=== PATIENT | male | born 1935 | race Caucasian/White ===

== ENCOUNTER 2017-08-19 10:24 | Inpatient (IN) ==
[2017-08-19] MEDS ORDERED: ASPIRIN PO STA (11:27)
[2017-08-19] MEDS ORDERED: MORPHINE IV ONE ×2 (11:32→14:48)
[2017-08-19] MEDS ORDERED: CATAPRES PO ONE (11:32)
[2017-08-19 12:08] LABS: MANUAL DIFF NEEDED? NO
[2017-08-19 12:21] LABS: BASO% 0.2 % (0.0-0.8); EOS# 0.04 X1000 (0.0-0.7); EOS% 0.3 % (0.0-10.0); HEMATOCRIT 39.9 % (42.0-52.0); HEMOGLOBIN 13.3 g/dL (14.0-18.0); LYMPH# 1.47 X1000 (1.2-3.4); LYMPH% 10.3 % (20.5-51.1); MCH 32.8 PG (27-31); MCHC 33.3 g/dL (33-37); MCV 98.3 FL (81-99); MONO# 0.73 X1000 (0.11-0.59); MONO% 5.1 % (1.7-9.3); MPV 10.7 FL (7.4-10.4); NEUT% 84.1 % (42.2-75.2); PLT 259 X1000 (130-400); RBC 4.06 XMIL (4.7-6.1)
[2017-08-19 12:27] LABS: INR 1.02; PROTIME 10.7 Seconds (9.2-11.7); PTT 25.9 Seconds (22.0-36.0)
[2017-08-19 12:35] LABS: CALCIUM 9.8 mg/dL (8.8-10.2); POTASSIUM 5.1 mmol/L (3.5-5.1); TOTAL BILIRUBIN 0.33 mg/dL (0.20-1.00); TOTAL PROTEIN 7.8 g/dL (6.3-8.3)
[2017-08-19 12:43] LABS: URINE SOURCE CATH
[2017-08-19 12:47] LABS: BILIRUBIN URINE NEGATIVE (NEGATIVE); BLOOD URINE NEGATIVE (NEGATIVE); COLOR ORANGE; GLUCOSE URINE NEGATIVE (NEGATIVE); LEUKOCYTES URINE LARGE (NEGATIVE); NITRITE URINE NEGATIVE (NEGATIVE); PH URINE 8.5; PROTEIN URINE 600 mg/dL (NEGATIVE); SP GRAVITY URINE 1.014; TURBIDITY URINE TURBID (CLEAR); UROBILINOGEN URINE NORMAL (NORMAL)
[2017-08-19 13:17] LABS: UR EPITHELIAL CELLS >10 /HPF (<10); URINE BACTERIA 4+ /HPF; URINE CULTURE NEEDED? YES; URINE MICRO REVIEW NEEDED? YES; URINE WBC TNTC /HPF (<10)
[2017-08-19 13:18] LABS: URINE CRYSTALS TRIPLE PHOS PRESENT
[2017-08-19] MEDS ORDERED: APRESOLINE IV ONE (13:46)
--- NOTE | 2017-08-19 13:47 | Diag Imaging Result Doc PS360 ---
EXAM: CHEST-PORTABLE INDICATION: SOB TECHNIQUE: One view COMPARISON: 10/07/2016 FINDINGS: There is mild linear scarring at the right lung base, stable. The lungs are grossly clear, otherwise. There is no discrete pleural fluid collection or pneumothorax. There are stable median sternotomy wires. Cardiac silhouette and central vasculature are grossly unremarkable, otherwise. IMPRESSION: Stable mild right basilar scarring. No definite acute chest pathology. Electronically signed by Tony Perez 08/19/2017 1:45 PM
--- NOTE | 2017-08-19 14:07 | PROVIDER DOCUMENTATION ---
HPI-Rash/Wound/ReCheck - General Chief Complaint: Return/Recheck Stated Complaint: MALE Time Seen by Provider: 08/19/17 11:05 Source: patient Allergies/Adverse Reactions: Allergies Allergy/AdvReac Type Severity Reaction Status Date / Time nitroglycerin Allergy Intermediate Unknown Verified 08/01/17 22:40 Home Medications: Home Medication List Medication Instructions Recorded Confirmed Last Taken Type Atenolol 50 mg PO DAILY 10/26/14 11/09/16 11/08/16 09:00 History Finasteride 5 mg PO DAILY 10/26/14 11/09/16 11/08/16 09:00 History Lisinopril 20 mg PO DAILY 10/26/14 11/09/16 11/08/16 08:00 History Metformin [Glucophage] 500 mg PO BID 10/26/14 11/09/16 11/08/16 21:00 History Glipizide 5 mg PO DAILY 11/24/14 11/09/16 11/08/16 21:00 History Aspirin 81 mg PO DAILY 11/12/15 11/09/16 11/02/16 09:00 History Tamsulosin [Flomax] 0.4 mg PO BID 04/30/16 11/09/16 11/09/16 04:30 History Furosemide [Lasix] 20 mg PO DAILY 08/16/16 11/09/16 11/09/16 04:40 History Donepezil [Aricept] 10 mg PO DAILY 10/07/16 11/09/16 11/08/16 09:00 History Acetaminophen [Tylenol] 500 mg PO PRN PRN 11/01/16 11/09/16 11/08/16 09:00 History Cetirizine [Zyrtec] 10 mg PO DAILY 11/01/16 11/09/16 11/08/16 09:00 History Mv,Ca,Min/Iron Fum/FA/Lyco/Lut 1 each PO DAILY 11/01/16 11/09/16 11/08/16 09:00 History [Complete Multi Tablet] Nitrofurantoin [place]/Macrocryst 100 mg PO BID #14 capsule 11/10/16 Unknown Rx [Macrobid] Tramadol HCl [Ultram] 50 mg PO Q4H PRN #15 tablet 11/10/16 Unknown Rx Fluconazole [Diflucan] 100 mg PO DAILY #10 tablet 08/19/17 Unknown Rx - History of Present Illness-Dermatology Nature of Presenting Problem: PT TO ER TODAY WITH C/O PAIN AND DISCHARGE FROM [facility]. HAS BEEN SEEN HERE SEVERAL TIMES INCLUDING LAST NIGHT FOR SAME COMPLAINT. STS THAT PAIN AND DISCHARGE GETS BETTER AFTER MEDICATION BUT THEN IT COMES RIGHT BACK. PT WITH HX OF DEMENTIA, NO FAMILY AT BEDSIDE TO ASSIST. Similar Symptoms Previously?: Yes Recently seen or treated by another doctor?: Yes Review of Systems - Adult - REVIEW OF SYSTEMS - ADULT ROS:: limited per condition (DEMENTIA) Constitutional: reports: no symptoms reported. denies: chills, fever Eyes: reports: no symptoms reported Ears, Nose, Mouth & Throat: reports: no symptoms reported Cardiovascular: reports: no symptoms reported. denies: chest pain, palpitations , syncope Respiratory: reports: dyspnea on exertion, shortness of breath Gastrointestinal: reports: see HPI, abdominal pain Genitourinary: reports: see HPI, discharge Musculoskeletal: reports: no symptoms reported Integumentary: reports: no symptoms reported Neurological: reports: no symptoms reported Psychiatric: reports: no symptoms reported Endocrine: reports: no symptoms reported Hematologic/Lymphatic: reports: no symptoms reported Allergic/Immunologic: reports: no symptoms reported All Other Systems: Reviewed and Negative Past History - Adult - PAST MEDICAL HISTORY-ADULT Review of Records: reports: Old Records Reviewed, Nursing Assessment Review, Medications Reviewed, Social history reviewed & non-contributory. Major Childhood Illnesses: reports: denies history Cardiovascular: reports: CAD, HTN, hyperlipidemia Respiratory: reports: denies history Gastrointestinal: reports: diverticulosis Genitourinary: reports: prostate cancer Musculoskeletal: reports: denies history Neurological: reports: CVA, dementia Endocrine/Immune: reports: Diabetes Diabetes Type: Type 2 Diabetes controlled by:: PO Meds Other Conditions: reports: denies history Additional History: Legally blind - PRIOR SURGERIES/PROCEDURES Surgical/Procedure History: reports: CABG, cardiac stent, other (Catarax ) - PRIOR HOSPITALIZATIONS Prior Hospitalizations: reports: none - IMMUNIZATION STATUS Childhood Immunizations: See Nurse Assessment Flu Vaccine: See Nurse Assessment - FAMILY HISTORY Family History: reviewed, not pertinent Physical Exam-General - PHYSICAL EXAM-ADULT Initial Vital Signs Reviewed: Yes - CONSTITUTIONAL General Appearance: alert, mild distress - EYES Eyes: PERRL/EOMI, pink conjunctivae - HEAD, EARS, NOSE, MOUTH & THROAT HENMT: moist mucous membranes - RESPIRATORY Respiratory: chest non-tender, no pleuratic chest pain, no accessory muscle use , crackles, rales, increased rate - CARDIOVASCULAR Cardiovascular: regular rate, rhythm - GASTROINTESTINAL (ABDOMEN) Abdominal Exam: normal bowel sounds, soft, no organomegaly, no pulsatile mass, tenderness (SUPRAPUBIC). negative: distended - GENITOURINARY Male Genitalia: uncircumcised, other (YEAST TO [place] AREA AND SCROTUM) - MUSCULOSKELETAL Back Exam: normal inspection, no CVA tenderness, no vertebral tenderness Extremity: normal range of motion, normal gait, normal inspection, normal capillary refill - SKIN Integumentary: normal turgor, diaphoresis, pallor - NEUROLOGIC Neurologic: grossly normal, no motor/sensory deficits - PSYCHIATRIC Psych/Mental Status: normal mood/affect, disheveled Progress - PLAN OF CARE/RESULTS Progress/Plan/Lab Results: Vital Signs - 8 hr 08/19/17 10:28 08/19/17 12:04 08/19/17 12:05 Temperature 97.7 F Pulse Rate 80 74 73 Respiratory Rate 20 26 H 25 H Blood Pressure 204/97 210/95 210/95 O2 Sat by Pulse Oximetry 100 97 97 08/19/17 12:31 08/19/17 14:22 Temperature Pulse Rate 65 65 Respiratory Rate 22 22 Blood Pressure 194/99 196/95 O2 Sat by Pulse Oximetry 95 Laboratory Results - last 24 hr 08/19/17 08/19/17 08/19/17 11:43 11:53 11:53 WBC 14.22 H RBC 4.06 L Hgb 13.3 L Hct 39.9 L MCV 98.3 MCH 32.8 H MCHC 33.3 RDW Std Deviation 13.0 Plt Count 259 MPV 10.7 H Neut % (Auto) 84.1 H Lymph % (Auto) 10.3 L [place] % (Auto) 5.1 Eos % (Auto) 0.3 Baso % (Auto) 0.2 Neut # (Auto) 11.95 H Lymph # (Auto) 1.47 [place]asta # (Auto) 0.73 H Eos # (Auto) 0.04 Baso # (Auto) 0.03 PT INR PTT (Actin FS) Sodium 138 Potassium 5.1 Chloride 98 Carbon Dioxide 18 L Anion Gap 22 BUN 27 H Creatinine 2.2 H Estimated GFR/1.73 m2 29 BUN/Creatinine Ratio 12 Glucose 231 H POC Glucose 249 H Calculated Osmolality 288 Calcium 9.8 Magnesium 2.0 Total Bilirubin 0.33 AST 22 ALT 14 Alkaline Phosphatase 82 Creatine Kinase 84 Troponin T Uhj-R-Aibovwywbrb Pept Total Protein 7.8 Albumin 4.0 Globulin 3.8 Albumin/Globulin Ratio 1.1 Plasma Lactate Urine Source Urine Color Urine Turbidity Urine pH Ur Specific [place] Urine Protein Ur Glucose (Stick) Ur Ketones (Stick) Urine Blood Urine Nitrite Urine Bilirubin Urobilinogen Dipstick Urine Leukocytes Urine WBC (Auto) Urine RBC (Auto) U Epithel Cells (Auto) Urine Bacteria (Auto) Urine Crystals Small Round Cells Urine Casts Urine Yeast-like Cells 08/19/17 08/19/17 08/19/17 11:53 11:53 11:53 WBC RBC Hgb Hct MCV MCH MCHC RDW Std Deviation Plt Count MPV Neut % (Auto) Lymph % (Auto) [place] % (Auto) Eos % (Auto) Baso % (Auto) Neut # (Auto) Lymph # (Auto) [place] # (Auto) Eos # (Auto) Baso # (Auto) PT 10.7 INR 1.02 PTT (Actin FS) 25.9 Sodium Potassium Chloride Carbon Dioxide Anion Gap BUN Creatinine Estimated GFR/1.73 m2 BUN/Creatinine Ratio Glucose POC Glucose Calculated Osmolality Calcium Magnesium Total Bilirubin AST ALT Alkaline Phosphatase Creatine Kinase Troponin T < 0.010 Pwr-G-Hbsydtaawra Pept 5102 H Total Protein Albumin Globulin Albumin/Globulin Ratio Plasma Lactate Urine Source Urine Color Urine Turbidity Urine pH Ur Specific [place] Urine Protein Ur Glucose (Stick) Ur Ketones (Stick) Urine Blood Urine Nitrite Urine Bilirubin Urobilinogen Dipstick Urine Leukocytes Urine WBC (Auto) Urine RBC (Auto) U Epithel Cells (Auto) Urine Bacteria (Auto) Urine Crystals Small Round Cells Urine Casts Urine Yeast-like Cells 08/19/17 08/19/17 11:53 12:33 WBC RBC Hgb Hct MCV MCH MCHC RDW Std Deviation Plt Count MPV Neut % (Auto) Lymph % (Auto) [place] % (Auto) Eos % (Auto) Baso % (Auto) Neut # (Auto) Lymph # (Auto) [place] # (Auto) Eos # (Auto) Baso # (Auto) PT INR PTT (Actin FS) Sodium Potassium Chloride Carbon Dioxide Anion Gap BUN Creatinine Estimated GFR/1.73 m2 BUN/Creatinine Ratio Glucose POC Glucose Calculated Osmolality Calcium Magnesium Total Bilirubin AST ALT Alkaline Phosphatase Creatine Kinase Troponin T Sfy-U-Bzwpvyrznfz Pept Total Protein Albumin Globulin Albumin/Globulin Ratio Plasma Lactate 3.1 H Urine Source CATH Urine Color ORANGE Urine Turbidity TURBID Urine pH 8.5 Ur Specific [place] 1.014 Urine Protein 600 A Ur Glucose (Stick) NEGATIVE Ur Ketones (Stick) NEGATIVE Urine Blood NEGATIVE Urine Nitrite NEGATIVE Urine Bilirubin NEGATIVE Urobilinogen Dipstick NORMAL Urine Leukocytes LARGE A Urine WBC (Auto) TNTC A Urine RBC (Auto) 10-20 A U Epithel Cells (Auto) >10 A Urine Bacteria (Auto) 4+ Urine Crystals TRIPLE PHOS PRESENT Small Round Cells Not Reportable Urine Casts Not Reportable Urine Yeast-like Cells Not Reportable Orders Category Date Time Status Bladder Scan and Record Result ORDERED Care 08/19/17 14:02 Active Cardiac Monitoring DIRECTED Care 08/19/17 11:27 Active Nursing [Mis. NRSG Communication Order] DIRECTED Care 08/19/17 14:38 Active Nursing- MD Consult Request ROUTINE Care 08/19/17 14:11 Active Oxygen Therapy- ED Nursing DIRECTED Care 08/19/17 11:27 Active Saline Loc NOW Care 08/19/17 11:27 Active Update & Confirm Home Medicati ROUTINE Care 08/19/17 14:30 Active MD [Physician/Provider Consults] Routine Cons 08/19/17 14:10 Ordered ABDOMEN FLAT/UPRIGHT [RAD] Stat Exams 08/19/17 14:38 Ordered CHEST-PORTABLE [RAD] Stat Exams 08/19/17 11:27 Completed BLOOD CULTURE [BLDCUL] Stat Lab 08/19/17 13:50 Results CBC WITH ELECTRONIC DIFF [HEME] Stat Lab 08/19/17 11:53 Completed CK PROFILE [SP CHEM] Stat Lab 08/19/17 11:53 Completed COMPREHENSIVE METABOLIC PANEL [CHEM] Stat Lab 08/19/17 11:53 Completed LACTATE, PLASMA [CHEM] Stat Lab 08/19/17 11:53 Completed MAGNESIUM [CHEM] Stat Lab 08/19/17 11:53 Completed PRO B-NATRIURETIC PEPTIDE Stat Lab 08/19/17 11:53 Completed PROTIME WITH INR [COAG] Stat Lab 08/19/17 11:53 Completed PTT [COAG] Stat Lab 08/19/17 11:53 Completed ROUTINE CULTURE [RM] Routine Lab 08/19/17 14:11 Ordered TROPONIN T Stat Lab 08/19/17 11:53 Completed URINALYSIS W/POSS RFLX CULT-1 [URINALYSIS] Stat Lab 08/19/17 12:33 Completed URINE CULTURE [RM] Routine Lab 08/19/17 13:19 Received URINE MANUAL MICROSCOPIC [URINALYSIS] Stat Lab 08/19/17 12:33 Completed 0.9% Sodium Chloride Inj [Ns] 1,000 ml Med 08/19/17 14:08 Active IV 75 mls/hr Aspirin Med 08/19/17 11:27 Discontinued 325 mg PO STAT STA Clonidine [Catapres] Med 08/19/17 11:32 Discontinued 0.1 mg PO NOW ONE Hydralazine [Apresoline] Med 08/19/17 13:46 Discontinued 10 mg IV NOW ONE Morphine Med 08/19/17 11:32 Discontinued 4 mg IV NOW ONE Morphine Med 08/19/17 14:48 Once 4 mg IV NOW ONE Piperacillin/Tazobactam [Zosyn] 3.375 gm Med 08/19/17 14:08 Discontinued 0.9% Sodium Chloride Inj [Ns] 50 ml IV NOW Piperacillin/Tazobactam [Zosyn] 3.375 gm Med 08/19/17 20:00 Ordered 0.9% Sodium Chloride Inj [Ns] 50 ml IV Q6H EKG [EKG] Stat Ther 08/19/17 11:27 Ordered Transfer/Admit Order [TRANSFER] Routine Transfer 08/19/17 14:21 Ordered DISCUSSED PT LABS, IMAGING, AND EXAM WITH DR. DE LA FUENTE WHO AGREES WITH ADMISSION. Result Diagrams: 08/19/17 11:53 08/19/17 11:53 - REASSESSMENT Reassessment #1 Time Reassessed: 11:20 (DURING ASSESSMENT, PT BECAME DIAPHORETIC AND SOB WITH STANDING. CARDIAC WORKUP AND MONITORING ORDERED.) - XRAY 1 XRAY Study: Chest Impression: Normal, See EMR Report XRAY Interpretation: NO ACUTE CHEST PATHOLOGY.-DR. LUJAN - CONSULTS/PCP/HOSPITALIST Notification #1 *Consult/PCP/Hospitalist*: DOUG HOOKS FOR DR. GARCIA Time Discussed: 14:00 Consult Disposition: Admit Procedures - ADDITIONAL PROCEDURES Additional Procedure: Bladder Decompression/Catheterization Description of Procedure (Other): SUPRAPUBIC CATHETER EXCHANGED BY DR. DE LA FUENTE WITHOUT DIFFICULTY. PT TOLERATED WELL. Departure - Departure Date of Disposition Decision: 08/19/17 Time of Disposition Decision: 14:00 DIAGNOSIS: Candidal balanitis Leukocytosis Qualifiers: Leukocytosis type: unspecified Qualified Code(s): D72.829 - Elevated white blood cell count, unspecified Hypertension Qualifiers: Hypertension type: unspecified Qualified Code(s): I10 - Essential (primary) hypertension Disposition: ADMITTED INPATIENT 09 Certified Medical Emergency: Emergent Condition: Good Referrals and Follow-Ups: None,PCP [Primary Care Provider] - - Critical Care Note This patient required my direct & personal management of CC.: No Attestation - Physician/ MITCHELL Attestation Patient care was provided by Advanced Practice Provider:: Yes Advanced Practice Provider:: Melania Galvez Advanced Practice Provider documentation review:: The Mid-level provider documentation, treatment plan and medical decision making was reviewed by the physician who agrees with all treatment and medical decision making by the MLP. The physician spent face to face time with patient:: No Advanced Practice Provider documentation review:: Supervising physician onsite and consulted in the evaluation and care of this patient. The physician did not have a face to face encounter with the patient.
[2017-08-19] MEDS ORDERED: NS 1,000 ML IV ONE (14:08)
[2017-08-19] MEDS ORDERED: ZOSYN 3.375 GM in NS 50 ML IV ONE (14:08)
--- NOTE | 2017-08-19 15:11 | Diag Imaging Result Doc PS360 ---
EXAM: ABDOMEN FLAT/UPRIGHT INDICATION: distended bladder; constipation TECHNIQUE: 2 views COMPARISON: 08/08/2016 FINDINGS: There are nonspecific bowel gas and stool patterns. There is no obstructive bowel pattern. There is no evidence of large volume free abdominal gas. There is no evidence of organomegaly. IMPRESSION: Nonspecific abdomen. Electronically signed by Tony Perez 08/19/2017 3:08 PM
[2017-08-19] MEDS ORDERED: ZOFRAN IV PRN (16:20)
[2017-08-19] MEDS ORDERED: TYLENOL PO PRN (16:20)
[2017-08-19] MEDS ORDERED: VANCOMYCIN IV PER PHARMACY MISC SCH (17:00)
[2017-08-19] MEDS ORDERED: NS 500 ML IV ONE (17:14)
[2017-08-19] MEDS ORDERED: NS NEB INH SCH (17:15)
--- NOTE | 2017-08-19 17:22 | SEPSIS: TISSUE PERFUSION ASSMT ---
Sepsis: Tissue Perfusion Assmt - Physical Exam Assessment Date: 08/19/17 Time Assessment Initialized: 16:30 Vital Signs: Last Vital Signs Temp 98.0 F 08/19/17 17:16 Pulse 88 08/19/17 17:16 Resp 16 08/19/17 17:16 BP 155/52 08/19/17 17:16 Pulse Ox 100 08/19/17 17:16 Height 5 ft 7 in Weight 194 lb 1.6 oz Lung Sounds:: wheezing Heart Sounds:: Regular Capillary Refill Time: Less Than 2 Seconds Peripheral Pulse Evaluation:: radial (R): 2+, radial (L): 2+, dorsalis-pedis (R) : 2+, dorsalis-pedis (L): 2+ Skin Exam:: pale - Impression Impression:: Tissue Perfusion Adequate - Plan Plan:: See Orders
[2017-08-19] MEDS ORDERED: VANCOMYCIN 1,700 MG in NS 250 ML IV ONE (18:00)
--- NOTE | 2017-08-19 18:10 | HISTORY AND PHYSICAL ---
PRIMARY CARE PROVIDER: No one. CHIEF COMPLAINT: Bladder and penile pain with penile drainage. HISTORY OF PRESENT ILLNESS: Mr. Ryan Adams is an 82-year-old male with history of dementia, hypertension, diabetes mellitus type 2, coronary artery disease, CVA with some mild left residual who has also a history of BPH with recent TURP and suprapubic catheter that was performed October 2016 now comes in after presenting over the last 2 days with the same complaints of bladder pain and penile pain with drainage. During this visit he was stood at the bedside and developed some autonomic dysautonomia type symptoms of becoming diaphoretic and pale, blood pressure was very high 190s to 200s. He was bladder scanned and had about 500 mL of urine in the bladder. Apparently there was not much drainage coming from the suprapubic catheter and he had what was noted as penile drainage. There was an attempt to flush the original suprapubic catheter which was blocked. Replacement catheter was performed by Dr. Zhegn in the ER immediately had around 475 mL of cloudy dark foul smelling urine. Immediately after his blood pressure returned to normal and he was started on antibiotics for urinary tract infection and also had some mild signs of sepsis with an elevated lactate along with elevated white blood cell count. 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 SURGICAL HISTORY: CABG and cardiac stents, right CA November 2012, suprapubic catheter and TURP by Dr. Summers October 2016. SOCIAL HISTORY: He denies any history of smoking tobacco or illicit drug use. Apparently he is still living at home alone with this medical history of dementia, there is no family at the bedside to further evaluate. FAMILY HISTORY: He is unaware of any of his family's medical history. REVIEW OF SYSTEMS: Fourteen point review of systems were complete and all were negative except for those mentioned above HPI. He had complaints of bladder pain and penile pain but he states this resolved after he had a new catheter placed. He denied any fever, chills, nausea, vomiting or diarrhea. ALLERGIES: Nitroglycerin. HOME MEDICATIONS: Tylenol, aspirin, atenolol, Zyrtec, Aricept, finasteride, Diflucan, Lasix, glipizide, lisinopril, metformin, multivitamin and Flomax. PHYSICAL EXAMINATION: VITAL SIGNS: Temperature is 97.7, heart rate 88, respiratory rate 23, blood pressure 97/58 although he was running on admit 194-210 systolic then after the Patel catheter was placed he has run anywhere from 97-117 systolic. He did get Catapres and Apresoline in the ER, he is 96% saturation on 2 L nasal cannula. GENERAL: Ryan Adams is 82-year-old male who is in no acute distress. He is able answer some questions appropriately but does have some mild confusion. HEENT: Atraumatic, normocephalic. Pupils equal, round, reactive to light. Extraocular movements intact. Mucous membranes are dry. NECK: Trachea midline. CARDIOVASCULAR: S1, S2. Regular rate and rhythm. No rubs, gallops, murmurs. No JVD or carotid bruits noted. He does have +1 pitting lower extremity edema. He has got actually +2 dorsalis and radial pulses. PULMONARY: Expiratory wheezes upper lobe decreased in the bases. No accessory muscle use or work of breathing noted. GI: Soft, nontender, nondistended. Positive bowel sounds x4. : Suprapubic catheter with some mild bloody drainage around the site, there is foul smelling urine. Urine is dark yellow, cloudy, new catheter was placed in the ER appears to be like urine drainage coming from the end of the penis. EXTREMITIES: He has got +1 pitting edema. He has got +2 dorsalis and radial pulses. He moves all extremities equally. NEURO: Oriented to name only, no sensory changes, he did complain of some right lower foot cramping. SKIN: Warm, dry, intact. LABORATORY DATA: White blood cells 14,000, hemoglobin 13, hematocrit 39, platelet count 259,000, INR is 1.02, PTT is 25.9, sodium 138, potassium 5.1, BUN 27, creatinine is 2.2, glucose 231, calcium 9.8, magnesium 2.0, bilirubin 0.33, AST 22, ALT 14, CK 84, troponin less than 0.01, ProBNP 5102, albumin 4.0, serum lactate went from 3.1 up to 5.5. Urinalysis 600 protein, large leukocytes, too numerous to count white blood cells, 10-20 red blood cells, 4+ bacteria. IMAGING: Chest x-ray stable mild right basilar scarring no acute findings. Abdominal x-ray nonspecific negative any acute findings. ASSESSMENT AND PLAN: 1. History of benign prostatic hypertrophy status post transurethral resection of prostate and suprapubic catheter placement secondary to urinary retention now appears to be having signs and symptoms of autonomic dysreflexia. Bladder scan revealed around 500 mL of urine in the bladder. Sterile flush of the suprapubic catheter proved the catheter to be blocked, new placement of catheter per Dr. Zheng in the ER with immediate around 475 mL of cloudy dark foul smelling urine. During this time his blood pressure was 190s up to 2 teens, he did receive clonidine and hydralazine prior to his bladder being relieved of urine and now he is mildly hypotensive. 2. Sepsis secondary to urinary tract infection due to urinary retention as the suprapubic catheter had been blocked. He does show signs of sepsis with increased respiratory rate, low blood pressure, elevated white blood cells, elevated lactic acid. Will do broad-spectrum coverage with vancomycin and Zosyn. 3. Hypotension with history of hypertension. This is likely secondary to release bladder pressure, will give IV fluid hydration and 500 mL bolus and trend vitals signs. 4. Acute kidney injury secondary to urinary bladder retention should improve now that there is a new suprapubic catheter. Dr. Summers with Urology will be consulted for the suprapubic catheter. 5. History of hypertension. Will hold off on antihypertensives for now until blood pressure improves. 6. Diabetes mellitus type 2, will do pattern blood glucoses and sliding scale insulin. 7. History of cerebrovascular accident. 8. Dementia, apparently he lives at home. This may be an issue. Upholsterer Apprentice has been consulted. 9. History of coronary artery disease. No complaints of chest pain. 10. History of hyperlipidemia. 11. Deep venous thrombosis prophylaxis SCDs. Dictated by HENNY Donahue for Fermin Baron MD cc: HENNY Donahue MD I have seen and examined this patient. I have also reviewed his lab works and imagine studies. I have provided face to face evaluation. Patient presents with severe sepsis due to uti and suprapubic catheter obstruction. Will continue with antibiotics. Urology has been consulted. will be pending the urine and blood cultures.ARDEN CALVO
[2017-08-19] MEDS: XOPENEX NEB INH SCH ×2 (19:10→23:10)
[2017-08-19] MEDS: ATROVENT NEB INH SCH ×2 (19:10→23:10)
[2017-08-19] MEDS: FLOMAX PO SCH (21:23)
[2017-08-19] MEDS: HUMULIN R SUBQ SCH (21:23)
[2017-08-20] MEDS: ZOSYN 3.375 GM in NS 50 ML IV SCH ×4 (00:50→18:43)
[2017-08-20] MEDS: ATROVENT NEB INH SCH ×6 (03:15→23:16)
[2017-08-20] MEDS: XOPENEX NEB INH SCH ×6 (03:15→23:16)
[2017-08-20 06:16] LABS: MANUAL DIFF NEEDED? NO
[2017-08-20 06:23] LABS: BASO% 0.3 % (0.0-0.8); EOS# 0.01 X1000 (0.0-0.7); EOS% 0.1 % (0.0-10.0); HEMATOCRIT 32.9 % (42.0-52.0); HEMOGLOBIN 11.1 g/dL (14.0-18.0); IMM GRAN# 0.02 X1000 (0.0-0.04); IMM GRAN% 0.1 % (0.0-0.5); MCH 32.6 PG (27-31); MCHC 33.7 g/dL (33-37); MCV 96.8 FL (81-99); MONO# 0.94 X1000 (0.11-0.59); MONO% 6.5 % (1.7-9.3); MPV 10.1 FL (7.4-10.4); PLT 233 X1000 (130-400)
[2017-08-20 06:27] LABS: INR 1.07; PROTIME 11.3 Seconds (9.2-11.7); PTT 28.3 Seconds (22.0-36.0)
[2017-08-20 06:38] LABS: ALBUMIN 3.4 g/dL (3.5-5.0); CALCIUM 8.5 mg/dL (8.8-10.2); MAGNESIUM 2.1 mg/dL (1.5-2.7); POTASSIUM 4.9 mmol/L (3.5-5.1); TOTAL BILIRUBIN 0.64 mg/dL (0.20-1.00); TOTAL PROTEIN 6.4 g/dL (6.3-8.3)
[2017-08-20] MEDS: HUMULIN R SUBQ SCH ×4 (06:40→20:23)
[2017-08-20] MEDS ORDERED: TENORMIN PO SCH ×2 (09:00)
[2017-08-20] MEDS: NS 1,000 ML IV SCH (09:00)
[2017-08-20] MEDS: ASPIRIN PO SCH (09:37)
[2017-08-20] MEDS: THERA M PLUS PO SCH (09:37)
[2017-08-20] MEDS: FLOMAX PO SCH (09:37)
[2017-08-20] MEDS: ZYRTEC PO SCH (09:38)
[2017-08-20] MEDS: ARICEPT PO SCH (09:38)
[2017-08-20] MEDS: PROSCAR PO SCH (09:38)
[2017-08-20] MEDS: PRILOSEC PO SCH (09:39)
--- NOTE | 2017-08-20 15:35 | PROGRESS NOTE ---
DATE: 08/20/2017 SUBJECTIVE: This patient states that he is feeling better. He is not complaining of pain at this moment. Dr. Summers from Urology Department evaluated this patient, I have placed this patient on fluids and he is tolerating p.o. as well. We have a positive urine culture and urine culture that showed gram-negative rods. Will continue to monitor. OBJECTIVE: Vital Signs: Temperature 98 degrees, pulse 69, respiratory rate 16, blood pressure 136/55, oxygen saturation 94 on 2 L of nasal cannula. HEENT: Head normocephalic. No trauma. PERRLA. Neck: Supple. No JVD. No masses. Central trachea. Chest: Clear to auscultation. Decreased breath sounds at the bases. Abdomen: Soft, nontender, nondistended. Positive bowel sounds. He has a suprapubic catheter with some redness around the site. Genitourinary: Like I mentioned before he has a suprapubic catheter, the urine is cloudy and has some sediment. Extremities: 1+ lower extremity edema. No clubbing. No cyanosis. Neurological: The patient is alert and oriented x1. He is not oriented in time or place. He is answering some of my questions. LABORATORY: WBC 14.4, hemoglobin 11.1, hematocrit 32.9, platelets 233,000. Sodium 143, potassium 4.9, chloride 105, bicarbonate 26, BUN 34, creatinine 2, glucose 146, calcium 8.5, albumin 3.4, TSH 1.9. ASSESSMENT AND PLAN: 1. History of benign prostatic hypertrophy status post transurethral resection of prostate and suprapubic catheter placement secondary to urinary retention and infection, we have a positive culture that showed gram-negative rods. Will continue with the antibiotics. 2. Sepsis secondary to urinary tract infection as above. I placed this patient on IV fluids and will continue with the antibiotics, like I mentioned before this patient's urine culture showed gram-negative rods. 3. Hypotension resolved. 4. Acute kidney injury likely secondary to urinary bladder retention, will continue to monitor. Dr. Summers with Urology following the patient. 5. History of hypertension. We will hold antihypertensive medication for now. 6. Type 2 diabetes. Continue with pattern of blood sugar and sliding scale insulin. 7. History of cerebrovascular accident aware. 8. Dementia. Apparently he lives by himself at home but I am not quite sure. Mop Worker has been consulted. 9. History of coronary artery disease, aware. He has not complained of chest pain. 10. History hyperlipidemia. Continue with the same management. 11. Deep vein thrombosis prophylaxis with SCDs. cc: Jordan Lantigua MD
--- NOTE | 2017-08-20 16:25 | CONSULTATION ---
DATE OF CONSULTATION: 08/20/2017 ATTENDING AND REFERRING PHYSICIAN: Hospitalist. HISTORY OF PRESENT ILLNESS: This 82-year-old male was admitted with a urinary tract infection and urinary retention secondary to a neurogenic bladder. He has an indwelling suprapubic tube. He has dementia and states he does not know when his catheter was changed. He had leakage through his penis. The suprapubic tube was changed in the emergency room and the patient states he felt immediate relief. Apparently approximately 500 mL of cloudy urine returned. The patient has a long history of diabetes. He had a transurethral resection of the prostate with placement of a suprapubic tube in October of 2016. He was last seen in the Urology Clinic in late October 2016. The suprapubic tube is supposed to be changed at least monthly by home health. The patient states he does not remember things very well. He states he does live alone and he states his neighbor gives him his medication. PAST MEDICAL HISTORY: Dementia, hypertension, type 2 diabetes, coronary artery disease, peripheral vascular disease, status post CVA, and right carotid surgery. PAST SURGICAL HISTORY: Coronary artery bypass graft, transurethral resection of the prostate, placement of a suprapubic tube, right carotid endarterectomy. SOCIAL HISTORY: As noted in the HPI. No tobacco or alcohol use. The patient does have family in the area. ALLERGIES: He is allergic to nitroglycerin. Otherwise no known drug allergies. REVIEW OF SYSTEMS: He states he normally does well. He states he is able to walk. He does have some weakness on his left side. He denies any problems with seizures, recent pulmonary or bowel problems. PHYSICAL EXAMINATION: General: A mildly obese, age apparent, normally developed, white male, who is cooperative. HEENT: Normal for age. Lungs: Clear. Cardiovascular: Regular rate and rhythm. Abdomen: Protuberant, soft, nontender. No hepatosplenomegaly or masses. Normal bowel sounds. Suprapubic tube in place, draining somewhat cloudy urine. : Uncircumcised male with phimosis. Both testes down. Small bilateral hydroceles. No inguinal hernias. Rectal: Normal sphincter tone. Prostate about 40 g, smooth, and symmetric. Extremities: No clubbing, cyanosis, or edema. Neurologic: With mild left-sided weakness. Otherwise no focal deficits. LABORATORY EVALUATION: He has a white count of 14.42, hemoglobin 11.1, hematocrit 32.9, platelets are 233,000. Serum electrolytes are normal. BUN 34, creatinine 2.0. Urinalysis had too numerous to count white cells and 4+ bacteria. His urine culture is growing gram- negative rods. IMPRESSIONS: 1. Neurogenic bladder. Possibly due to end-stage diabetes or his previous cerebrovascular accident. 2. Urinary retention. 3. Urinary tract infection. RECOMMENDATIONS: 1. The suprapubic tube needs to be changed at least every 4 weeks. The bladder will drain through the least resistant path, whether that is through the urethra or through the suprapubic tube. If the suprapubic tube becomes blocked the bladder will fill until there is enough pressure to go either through the urethra or around the suprapubic tube. 2. Could stop Flomax but continue Proscar. 3. Follow up in Clinic as previously scheduled in October of 2017. Thank you for this consultation. cc: Jerrod Summers MD MTDD
[2017-08-21] MEDS: ZOSYN 3.375 GM in NS 50 ML IV SCH ×4 (00:10→18:45)
[2017-08-21] MEDS: ATROVENT NEB INH SCH ×6 (03:33→23:15)
[2017-08-21] MEDS: XOPENEX NEB INH SCH ×6 (03:34→23:15)
[2017-08-21] MEDS: NS 1,000 ML IV SCH ×2 (03:46→18:47)
[2017-08-21] MEDS ORDERED: NORCO-5 PO ONE (04:51)
[2017-08-21] MEDS: LABETALOL IV PRN (05:10)
[2017-08-21 05:42] LABS: MANUAL DIFF NEEDED? NO
[2017-08-21 05:50] LABS: BASO% 0.4 % (0.0-0.8); EOS# 0.15 X1000 (0.0-0.7); EOS% 1.5 % (0.0-10.0); HEMATOCRIT 33.5 % (42.0-52.0); HEMOGLOBIN 11.2 g/dL (14.0-18.0); IMM GRAN# 0.05 X1000 (0.0-0.04); IMM GRAN% 0.5 % (0.0-0.5); LYMPH# 1.05 X1000 (1.2-3.4); LYMPH% 10.2 % (20.5-51.1); MCH 32.2 PG (27-31); MCHC 33.4 g/dL (33-37); MCV 96.3 FL (81-99); MONO# 0.58 X1000 (0.11-0.59); MONO% 5.6 % (1.7-9.3); MPV 10.5 FL (7.4-10.4); NEUT% 81.8 % (42.2-75.2); PLT 224 X1000 (130-400); RBC 3.48 XMIL (4.7-6.1)
[2017-08-21 06:06] LABS: CALCIUM 8.1 mg/dL (8.8-10.2); POTASSIUM 4.9 mmol/L (3.5-5.1)
[2017-08-21] MEDS: HUMULIN R SUBQ SCH ×4 (06:43→21:29)
[2017-08-21] MEDS: ARICEPT PO SCH (09:28)
[2017-08-21] MEDS: THERA M PLUS PO SCH (09:28)
[2017-08-21] MEDS: ASPIRIN PO SCH (09:28)
[2017-08-21] MEDS: PRILOSEC PO SCH (09:28)
[2017-08-21] MEDS: PROSCAR PO SCH (09:29)
[2017-08-21] MEDS: ZYRTEC PO SCH (09:29)
[2017-08-21] MEDS ORDERED: VANCOMYCIN 1,300 MG in NS 250 ML IV SCH (18:00)
[2017-08-21] MEDS: MIRALAX PO SCH (18:48)
--- NOTE | 2017-08-21 18:58 | PROGRESS NOTE ---
DATE: 08/21/2017 SUBJECTIVE: Patient has no focal complaints except he has not had a bowel movement in several days. OBJECTIVE: Vital Signs: Blood pressure 171/82, heart rate of 83, respiratory rate 20, temperature 98.3 degrees, 96% on 2 L. Cardiovascular: Regular rate and rhythm. Pulmonary: Bilateral breath sounds. Clear to auscultation. GI: Soft, nontender, nondistended. Bowel sounds are positive. Extremities: No clubbing or cyanosis. Lymphatics: No peripheral edema. Neurological: Nonfocal. LABORATORY DATA: White count 10, hemoglobin 11 and hematocrit 33, platelets 224,000. Creatinine is 1.9. PROBLEM LIST: 1. Urinary tract infection associated with a transurethral resection of prostate. He does have a Providencia rettgeri urine culture, penile culture and blood culture, which is sensitive to Zosyn and Levaquin. We will continue empiric antibiotics. I believe he is on Zosyn currently. Repeat his blood cultures to prove sterility of his blood. 2. Sepsis. That appears to be resolved. 3. Acute kidney injury. This is also improving. 4. Type 2 diabetes. Continue to follow blood sugars. 5. Dementia. Aware. Appears to be clinically stable. DISPOSITION: We need to work on getting him up and about. We will see how he does. He may need some physical therapy to see about getting him ready for disposition. cc: Tahir Mcbride MD
[2017-08-21] MEDS: LACTULOSE PO SCH (21:29)
[2017-08-22] MEDS: NS 1,000 ML IV SCH ×3 (00:02→17:58)
[2017-08-22] MEDS: ZOSYN 3.375 GM in NS 50 ML IV SCH ×4 (00:02→17:59)
[2017-08-22] MEDS: ATROVENT NEB INH SCH ×6 (03:33→23:31)
[2017-08-22] MEDS: XOPENEX NEB INH SCH ×6 (03:33→23:31)
[2017-08-22 05:53] LABS: HEMATOCRIT 34.6 % (42.0-52.0); HEMOGLOBIN 11.3 g/dL (14.0-18.0); MCH 32.6 PG (27-31); MCHC 32.7 g/dL (33-37); MCV 99.7 FL (81-99); RBC 3.47 XMIL (4.7-6.1)
[2017-08-22] MEDS: HUMULIN R SUBQ SCH ×4 (06:09→22:22)
[2017-08-22 06:18] LABS: CALCIUM 8.1 mg/dL (8.8-10.2); POTASSIUM 4.3 mmol/L (3.5-5.1)
[2017-08-22] MEDS: ASPIRIN PO SCH (08:51)
[2017-08-22] MEDS: ZYRTEC PO SCH (08:51)
[2017-08-22] MEDS: ARICEPT PO SCH (08:51)
[2017-08-22] MEDS: PRILOSEC PO SCH (08:51)
[2017-08-22] MEDS: PROSCAR PO SCH (08:51)
[2017-08-22] MEDS: THERA M PLUS PO SCH (08:51)
[2017-08-22] MEDS: LACTULOSE PO SCH ×2 (09:12→22:22)
[2017-08-22] MEDS: MIRALAX PO SCH (09:13)
[2017-08-22] MEDS: LABETALOL IV PRN (11:21)
[2017-08-22] MEDS ORDERED: ZOSYN ONE (11:49)
--- NOTE | 2017-08-22 15:17 | PROGRESS NOTE ---
DATE: 08/22/2017 SUBJECTIVE: Today, Mr. Adams refers to be doing a little better. Denies any complaints. OBJECTIVELY: Vital Signs: Blood pressure is 199/86, pulse of 89, respirations 18, temperature is 98.4 degrees. General: Mr. Adams is an 82-year-old male. He is in bed, not in any distress. HEENT: Mucosa is pink and moist. Anicteric. Acyanotic. Neck is supple. Chest was clear. Cardiovascular: Regular rate and rhythm. There is no murmurs, no rubs, no gallops. Abdomen is soft, distended, but nontender. There is a suprapubic catheter in place. Extremities: No pedal edema. IMPREGNATOR AND DRIER HELPER: Patient is awake and alert. LABORATORY DATA: CBC is reviewed. WBC is 9.24, hemoglobin is 11.3, platelet count of 209,000. Chemistry: Sodium 140, potassium 4.3, chloride is 103. Bicarb is 22, creatinine is down to 1.6 from 2.2 on admission. Glucose is 173. ASSESSMENT: 1. Sepsis on presentation, improved. Patient did not need any pressors. 2. Providencia rettgeri urinary tract infection with bacteremia. 3. Suprapubic catheter related infection. Catheter is changed. Patient has been reviewed by Dr. Summers, the urologist. 4. Acute kidney injury is improving with fluids. 5. Diabetes mellitus, controlled. 6. Dementia, stable. In general, we are going to continue with the IV antibiotics and repeat blood culture has been done which we are still waiting the results. We are still awaiting social work arrangement for the patient's disposition. I think eventually, the patient can be transitioned to oral levofloxacin which covers very well the Providencia. cc: Fermin Baron MD
[2017-08-23] MEDS: NS 1,000 ML IV SCH ×2 (00:54→06:30)
[2017-08-23] MEDS: ZOSYN 3.375 GM in NS 50 ML IV SCH ×4 (00:54→12:01)
[2017-08-23] MEDS: ATROVENT NEB INH SCH ×4 (03:40→15:24)
[2017-08-23] MEDS: XOPENEX NEB INH SCH ×4 (03:40→15:24)
[2017-08-23] MEDS: LABETALOL IV PRN (04:53)
[2017-08-23 06:13] LABS: MANUAL DIFF NEEDED? NO
[2017-08-23 06:16] LABS: BASO% 1.1 % (0.0-0.8); EOS# 0.52 X1000 (0.0-0.7); EOS% 7.2 % (0.0-10.0); HEMATOCRIT 33.5 % (42.0-52.0); HEMOGLOBIN 11.1 g/dL (14.0-18.0); IMM GRAN# 0.03 X1000 (0.0-0.04); IMM GRAN% 0.4 % (0.0-0.5); LYMPH# 1.69 X1000 (1.2-3.4); LYMPH% 23.4 % (20.5-51.1); MCH 32.3 PG (27-31); MCHC 33.1 g/dL (33-37); MCV 97.4 FL (81-99); MONO# 0.53 X1000 (0.11-0.59); MONO% 7.4 % (1.7-9.3); MPV 9.9 FL (7.4-10.4); NEUT% 60.5 % (42.2-75.2); PLT 222 X1000 (130-400); RBC 3.44 XMIL (4.7-6.1)
[2017-08-23] MEDS: HUMULIN R SUBQ SCH ×2 (06:31→11:58)
[2017-08-23 06:56] LABS: POTASSIUM 4.3 mmol/L (3.5-5.1)
[2017-08-23] MEDS: PROSCAR PO SCH (08:25)
[2017-08-23] MEDS: PRILOSEC PO SCH (08:26)
[2017-08-23] MEDS: ASPIRIN PO SCH (08:26)
[2017-08-23] MEDS: ARICEPT PO SCH (08:26)
[2017-08-23] MEDS: THERA M PLUS PO SCH (08:26)
[2017-08-23] MEDS: ZYRTEC PO SCH (08:26)
[2017-08-23] MEDS: MIRALAX PO SCH (08:28)
[2017-08-23] MEDS: LACTULOSE PO SCH (08:28)
[2017-08-23 12:14] VITALS: BP 170/97
--- NOTE | 2017-08-24 08:49 | DISCHARGE SUMMARY ---
ADMISSION DATE: 08/19/2017 DISCHARGE DATE: 08/23/2017 CONSULTATION: Dr. Jerrod Summers with Urology. PERTINENT PROCEDURE: Abdominal x-ray showed a nonspecific abdomen. DISCHARGE DIAGNOSES: 1. Sepsis on presentation secondary to urinary tract infection with bacteremia, improved. 2. Providencia rettgeri urinary tract infection with bacteremia. The patient will be transitioned to p.o. antibiotics. 3. Suprapubic catheter related infection. Catheter has been changed. Patient has been evaluated by Dr. Summers. He feels his neurogenic bladder is possibly from end-stage diabetes or his previous cerebrovascular accident, and that his suprapubic catheter needs to be changed out at least every 4 weeks or the bladder will drain to the least resistant path whether it be through the urethra or through the suprapubic tube and, if the suprapubic tube becomes blocked, then the bladder will fill up until there is enough pressure to either go through the urethra or around the suprapubic tube, and he will continue on Flomax and keep his appointment that he originally had in 10/2017. 4. Acute kidney injury, improved with IV fluids. 5. Diabetes mellitus, controlled. 6. Dementia, stable. The patient will be discharged with [facility]. HOSPITAL COURSE: Mr. Adams is an 82-year-old male with a history of dementia, hypertension, diabetes mellitus type 2, coronary artery disease, CVA with some mild left residual, has a history of BPH with recent TURP and suprapubic catheter that was performed in 10/2016. He came into the ED presenting with 2 days of bladder pain and penile pain with discharge. During the visit, he stood up at the bedside and developed some autonomic dysautonomia type symptoms and became diaphoretic and pale. His blood pressure was very high, 190s to 200. He was bladder scanned. He had about 500 mL of urine. There was not much draining from his suprapubic catheter. He did have what was noted as penile drainage. There was an attempt to flush the original catheter which was blocked. Replacement of the catheter was performed by Dr. Zheng in the ER and immediately had 475 mL of cloudy dark foul-smelling urine. Immediately after his blood pressure returned to normal, he was started on antibiotics for urinary tract infection and had some mild signs of sepsis with elevated lactate along with elevated WBCs. Urology was consulted. He recommended that the catheter be changed out every 4 weeks and keep his previously scheduled Clinic appointment in 10/2017. He was initiated on IV fluids. He had a positive urine culture. His urine culture was growing gram-negative rods. He was continued on IV antibiotics. He did grow Providencia rettgeri. Repeat blood cultures were drawn. His sepsis appeared to resolve. His acute kidney injury was improving. The patient was working with his physical therapy. His repeat blood cultures showed no growth after 48 hours. His white count remains normal. He has been afebrile. He is appropriate for discharge back home today. He has accepted home help. VITAL SIGNS: Temperature is 98 degrees, heart rate 90, respirations 16, blood pressure 170/97. O2 is 94% on room air. DISCHARGE DIET: Diabetic. DISCHARGE MEDICATIONS: As per Dr. Baron. FOLLOWUP: Mr. Adams is being discharged home with [facility]. He will need his suprapubic catheter changed out every 4 weeks. He will need to keep his follow- up appointment with his urologist in 10/2017 as well as follow up with his PCP. He can return to the ED for any worsening of symptoms. Dictated by HENNY Alatorre for Fermin Baron MD cc: Fermin Baron MD Time spent for discharge 34 minutes. UMESH
[2017-08-24] MEDS ORDERED: LEVAQUIN PO SCH (09:00)
--- NOTE | 2017-08-28 12:29 | ED EKG INTERP ---
This chart was entered by Kiah Christianson Scribe, acting as scribe for Juan Zheng MD. EKG Interpretation - EKG Time of EKG reading by physician:: 11:24 EKG Read and Signed by:: Juan Zheng EKG Interpretation (*Must complete 3 of following elements*): Abnormal Rate: 80 (left axis deviation) Rhythm: sinus rhythm w marked sinus arrhythmia QRS: RBB Attestation - Physician/ MITCHELL Attestation Patient care was provided by Advanced Practice Provider:: Yes Advanced Practice Provider documentation review:: The Mid-level provider documentation, treatment plan and medical decision making was reviewed by the physician who agrees with all treatment and medical decision making by the MLP. The physician spent face to face time with patient:: Yes Advanced Practice Provider documentation review:: Supervising physician onsite and consulted in the evaluation and care of this patient. The physician did have a face to face encounter with the patient. This chart was documented by the indicated scribe, (Kiah Christianson Scribe) and accurately reflects the services I performed and decisions made by me, Juan Zheng MD, as attested by the provider's signature.
== END 2017-08-23 17:15 | disposition home health service (06) ==
LOC: ED 10:24 → SUATTDRO 16:07 → 4N 16:07
PROVIDERS: ATTEND Internal Medicine